=== PATIENT | male | born 1975 ===

== ENCOUNTER 2018-01-07 15:48 | Emergency (ER) | payer SELFPAY ==
[2018-01-07 15:49] VITALS: BP 154/108; PULSE 81; RESP 24; TEMP 36.1; O2SAT 100; BMI 27.3
--- NOTE | 2018-01-07 15:51 | NURSING ---
NO OLD EKGS
--- NOTE | 2018-01-07 16:18 | ED.RN ---
PT CONTINUED TO MOAN AND CARRY ON IN THE WAITING ROOM . PT THEN HAD A LOUD DISCUSSION WITH HIS S.O. AND THEN THEY BOTH AMBULATED FROM THE ER. ACCORDING TO SECURITY THEY LEFT THE PREMISES.
--- NOTE | 2018-01-07 16:27 | EKGRS_ITS ---
Test Reason : CP Blood Pressure : / mmHG Vent. Rate : 078 BPM Atrial Rate : 078 BPM P-R Int : 144 ms QRS Dur : 090 ms QT Int : 348 ms P-R-T Axes : 061 061 057 degrees QTc Int : 396 ms Normal sinus rhythm Normal ECG Confirmed by ELAINA KNOX, AMANDA ([id number]), food editor CRISTOBAL DANIEL ([id number] on 01/09/2018 1:35:02 PM Referred By: Confirmed By:AMANDA DELAENY MD
== END 2018-01-07 17:10 | disposition left against medical advice (07) ==
LOC: ED 17:04
PROVIDERS: Emergency Provider Emergency Medicine
DX: R69 Illness, unspecified (principal)
CPT/HCPCS: 93005